=== PATIENT | female | born 1985 | race Caucasian/White ===

== ENCOUNTER 2018-12-22 09:33 | Inpatient (IN) | payer BC ==
[2018-12-22] MEDS: DEXTROSE 5%-LR 1,000 ML IV (10:40)
[2018-12-22] MEDS ORDERED: MISOPROSTOL 200 MCG TAB PR ×2 (11:30→21:30)
[2018-12-22] MEDS ORDERED: OXYTOCIN 30 UNITS/LR 500 ML IV ×2 (11:30→21:30)
[2018-12-22] MEDS ORDERED: CARBOPROST 250 MCG INJ IM ×2 (11:30→21:30)
[2018-12-22] MEDS ORDERED: METHYLERGONOVINE 0.2 MG INJ IM ×2 (11:30→21:30)
[2018-12-22] MEDS: LACTATED RINGER'S 1,000 ML IV ×2 (11:49→17:34)
[2018-12-22 12:10] LABS: ADD MAN DIFF? NO
[2018-12-22 12:22] LABS: BASOPHILS % 0.3 % (0.0-2.0); EOSINOPHILS # 0.1 10^3/ul (0.0-0.5); EOSINOPHILS % 0.6 % (0.0-7.0); HEMATOCRIT 35.5 % (37.0-47.0); HEMOGLOBIN 11.4 g/dl (12.0-16.0); LYMPHOCYTES # 1.3 10^3/ul (0.8-2.9); LYMPHOCYTES % 15.4 % (15.0-51.0); MEAN CORPUSCULAR HEMOGLOBIN 27.1 pg (29.0-33.0); MEAN CORPUSCULAR HGB CONC 32.1 g/dl (32.0-37.0); MEAN CORPUSCULAR VOLUME 84.5 fl (82.0-101.0); MEAN PLATELET VOLUME 10.2 fl (7.4-10.4); MONOCYTE # 0.5 10^3/ul (0.3-0.9); MONOCYTES % 5.6 % (0.0-11.0); NEUTROPHIL # 6.6 10^3/ul (1.6-7.5); NEUTROPHILS % 76.7 % (39.0-77.0); PLATELET COUNT 195 10^3/UL (140-415); RED CELL DISTRIBUTION WIDTH 14.5 % (11.5-14.5)
[2018-12-22 12:22] LABS: WHITE BLOOD COUNT 8.6 10^3/ul (4.8-10.8)
[2018-12-22 12:33] LABS: INR 0.99; PARTIAL THROMBOPLASTIN TIME 29.2 Sec (23.0-35.0); PROTIME 13.2 Sec (11.9-14.9)
[2018-12-22 15:16] LABS: RAPID PLASMA REAGIN NONREACTIVE (NR)
[2018-12-22] MEDS: TERBUTALINE 1 MG/ML INJ SC (15:54)
[2018-12-22] MEDS ORDERED: morphine SULFATE/PF (10 MG/10 ML) INJ (19:31)
[2018-12-22] MEDS ORDERED: OXYTOCIN 10 UNIT INJ (19:32)
[2018-12-22] MEDS ORDERED: ONDANSETRON 4 MG INJ (19:32)
[2018-12-22] MEDS: CEFAZOLIN 2 GM/50 ML (PMX) 50 ML IVPB (20:57)
[2018-12-22] MEDS ORDERED: morphine 2 MG INJ IV (21:30)
[2018-12-22] MEDS ORDERED: NALOXONE (0.4 MG/ML) INJ IV (21:30)
[2018-12-22] MEDS ORDERED: DIPHENHYDRAMINE 50 MG INJ IV (21:30)
[2018-12-22] MEDS ORDERED: METHYLERGONOVINE 0.2 MG TAB PO (21:30)
[2018-12-22] MEDS: OXYTOCIN 30 UNITS/LR 500 ML IV (22:37)
[2018-12-22] MEDS: KETOROLAC 30 MG INJ IV (23:13)
[2018-12-23] MEDS: OXYTOCIN 30 UNITS/LR 500 ML IV (02:03)
[2018-12-23] MEDS: KETOROLAC 30 MG INJ IV ×3 (05:58→18:29)
[2018-12-23 07:52] LABS: ADD MAN DIFF? NO
[2018-12-23 07:59] LABS: WHITE BLOOD COUNT 10.3 10^3/ul (4.8-10.8)
[2018-12-23 07:59] LABS: BASOPHILS % 0.2 % (0.0-2.0); EOSINOPHILS % 0.1 % (0.0-7.0); HEMATOCRIT 30.9 % (37.0-47.0); HEMOGLOBIN 9.8 g/dl (12.0-16.0); LYMPHOCYTES % 9.6 % (15.0-51.0); MEAN CORPUSCULAR HEMOGLOBIN 26.8 pg (29.0-33.0); MEAN CORPUSCULAR HGB CONC 31.7 g/dl (32.0-37.0); MEAN CORPUSCULAR VOLUME 84.7 fl (82.0-101.0); MEAN PLATELET VOLUME 10.4 fl (7.4-10.4); MONOCYTE # 0.5 10^3/ul (0.3-0.9); MONOCYTES % 4.4 % (0.0-11.0); NEUTROPHIL # 8.7 10^3/ul (1.6-7.5); NEUTROPHILS % 84.8 % (39.0-77.0); PLATELET COUNT 152 10^3/UL (140-415); RED BLOOD COUNT 3.65 10^6/ul (4.20-5.40); RED CELL DISTRIBUTION WIDTH 14.5 % (11.5-14.5)
[2018-12-23] MEDS: SENNA/DOCUSATE NA (8.6MG/50MG) TAB PO ×2 (10:40→20:39)
[2018-12-23] MEDS: DEXTROSE 5%-LR 1,000 ML IV ×3 (10:41→21:21)
[2018-12-23] MEDS ORDERED: DIPHTH/TET/ACEL PERTUSS (ADULT) 0.5 ML VIAL IM* (11:00)
[2018-12-23] MEDS: HYDROCODONE/APAP (5/325) TAB GTB ×2 (14:00→21:52)
[2018-12-24] MEDS: IBUPROFEN 800 MG TAB PO ×4 (00:29→22:37)
[2018-12-24] MEDS: DEXTROSE 5%-LR 1,000 ML IV ×2 (05:21→13:21)
[2018-12-24] MEDS: HYDROCODONE/APAP (5/325) TAB GTB ×3 (05:44→21:20)
[2018-12-24] MEDS: SENNA/DOCUSATE NA (8.6MG/50MG) TAB PO ×2 (09:00→21:19)
[2018-12-24] MEDS: HYDROCODONE/APAP (5/325) TAB NGT (09:49)
[2018-12-24] MEDS: LANOLIN HPA 1 PKT TOP (15:25)
[2018-12-25] MEDS: IBUPROFEN 800 MG TAB PO ×2 (05:32→14:02)
[2018-12-25] MEDS: HYDROCODONE/APAP (5/325) TAB GTB ×2 (06:00→12:43)
[2018-12-25] MEDS: SENNA/DOCUSATE NA (8.6MG/50MG) TAB PO (09:13)
[2018-12-25] MEDS: DIPHTH/TET/ACEL PERTUSS (ADULT) 0.5 ML VIAL IM* (10:10)
[2018-12-25] MEDS: MEASLES,MUMPS,RUBELLA VACCINE INJ SC* (10:11)
== END 2018-12-25 16:10 | disposition home or self-care (01) | DRG 788 ==
LOC: OBT 09:33 → L-D 09:33 → OBT 11:19 → L-D 11:15 → PP1 23:51
PROVIDERS: Obstetrics & Gynecology
PROC: 10D00Z1 Extraction of Products of Conception, Low, Open Approach (ICD-10-PCS; principal; 2018-12-22 18:00)
DX: O34.211 Maternal care for low transverse scar from previous cesarean delivery (principal); Z3A.38 38 weeks gestation of pregnancy; Z37.0 Single live birth
CPT/HCPCS: 85025; 85610; 85730; 86592; 86850; 86900; 86901; 90715; 99464